=== PATIENT | male | born 1985 | race Caucasian/White ===

== ENCOUNTER → 2025-05-23 08:33 | Outpatient (REF) | payer BC, SELFPAY | LOC: DHSLP 08:33 | PROVIDERS: ATTENDING PHYSICIAN Internal Medicine Critical Care Medicine; FAMILY PHYSICIAN Internal Medicine | DX: G47.30 Sleep apnea, unspecified (principal); R06.83 Snoring | CPT/HCPCS: 95800 ==

== ENCOUNTER → 2025-07-12 09:33 | Outpatient (REF) | payer BC, SELFPAY | LOC: DHSLP 09:33 | PROVIDERS: ATTENDING PHYSICIAN Internal Medicine Critical Care Medicine; FAMILY PHYSICIAN Internal Medicine | DX: G47.33 Obstructive sleep apnea (adult) (pediatric) (principal) | CPT/HCPCS: 95810 ==